=== PATIENT | male | born 1980 | race Two or more races ===

== ENCOUNTER 2017-12-23 18:01 | Emergency (ER) | payer BC ==
[~2017-12-23] VITALS: Ht 190.5 cm; Wt 94.8 kg
[2017-12-23] MEDS ORDERED: TRUVADA 200 MG1 EAC1 ORAL (18:19)
[2017-12-23 19:00] VITALS: BP 134/77
--- NOTE | 2017-12-23 19:12 | Emergency Room Report ---
History of Present Illness General Chief Complaint: Pain Source: Patient Present Illness HPI Patient reports that approximately at 1:00 in the afternoon he had a verbal argument Soon after that patient started having increased palpitation and left upper chest pain The pain had radiated to the left shoulder Intermittently since then patient has had Sharp shooting pain similar location Denies any shortness of breath denies any back or flank pain Denies any focal weakness patient is in a rehabilitation facility has been there since the Allergies: Coded Allergies: No Known Allergies (Unverified , 12/23/17) Patient History Past Medical History: see triage record Pertinent Family History: none Reviewed Nursing Documentation: PMH: Agreed; PSxH: Agreed Review of Systems All Other Systems: negative except mentioned in HPI Physical Exam Vital Signs Date Time Temp Pulse Resp B/P (MAP) Pulse Ox O2 Delivery O2 Flow Rate FiO2 12/23/17 18:14 98.1 71 18 142/97 97 Room Air 98.1 Sp02 EP Interpretation: reviewed, normal General Appearance: well appearing, no apparent distress Head: normocephalic, atraumatic Eyes: bilateral eye PERRL, bilateral eye EOMI ENT: hearing grossly normal, normal pharynx, TMs + canals normal, uvula midline Neck: full range of motion, supple, no meningismus, no bony tend Respiratory: lungs clear, normal breath sounds, no rhonchi, no respiratory distress, no retraction, no accessory muscle use Cardiovascular #1: normal peripheral pulses, regular rate, rhythm, no edema, no gallop, no JVD, no murmur Gastrointestinal: normal bowel sounds, non tender, soft, no mass, no organomegaly, non-distended, no guarding, no hernia, no pulsatile mass, no rebound Genitourinary: no CVA tenderness Musculoskeletal: normal inspection Neurologic: oriented x3, responsive, international editorial producer III-XII nml as tested, motor strength/ tone normal, sensory intact Psychiatric: mood/affect normal Skin: normal color, no rash, warm/dry, palpation normal Lymphatic: normal inspection, no adenopathy Medical Decision Making Diagnostic Impression: Primary Impression: chest pain ER Course Patient is a fairly complex patient with multiple differential to consideration including but not limited to cardiac cardiopulmonary and vascular emergencies Patient's EKG is normal Rhythm strip shows also sinus rhythm Patient remains hemodynamically stable No signs of any heart murmurs Patient does not sound to have necessarily cardiac pathology in nature and is otherwise stable for close outpatient follow-up EKG Diagnostic Results Rate: normal Rhythm: NSR ST Segments: no acute changes Rhythm Strip Diag. Results EP Interpretation: yes Rate: 77 Rhythm: NSR, no PVC's, no ectopy Last Vital Signs Date Time Temp Pulse Resp B/P (MAP) Pulse Ox O2 Delivery O2 Flow Rate FiO2 12/23/17 19:00 90 20 134/77 99 Room Air 12/23/17 18:14 98.1 98.1 Status: improved Disposition: HOME, SELF-CARE Condition: Stable Patient Instructions: Nonspecific Chest Pain, [id number] Additional Instructions: Patient is provided with the discharge instructions notified to follow up with primary doctor in the next 2-3 days otherwise return to the er with any worsening symptoms. Please note that this report is being documented using [employer] technology. This can lead to erroneous entry secondary to incorrect interpretation by the dictating instrument. Al Echevarria DO Dec 23, 2017 19:12
--- NOTE | 2017-12-24 14:55 | Cardiology Report ---
APPROVED REPORT EKG Measurement Heart [id number] Normal sinus rhythm Nonspecific ST abnormality Abnormal ECG
== END 2017-12-23 19:09 | disposition home or self-care (01) ==
LOC: EMR 19:01
DX: R07.9 Chest pain, unspecified (principal)
CPT/HCPCS: 93005; 99283